=== PATIENT | male | born 1980 | race Caucasian/White ===

== ENCOUNTER 2016-09-20 12:42 | Emergency (ER) | payer OTHER ==
[~2016-09-20] VITALS: Ht 185.4 cm; Wt 167.3 kg
[~2016-09-20 12:42] MED LIST: ALBUTEROL SULF8.5 GM IH; BENADRYL25 MG PO; BUPROPION XL150 MG PO; FLAGYL500 MG PO; FLOVENT 22120 INHALA IH; HYDROCODONE-AP1 EA15 PO; LEVOTHYROXINE75 MCG PO; LYRICA150 MG PO; MEDROL DOSEPAK4 MG PO; METHADONE5 MG PO; METHOCARBAMOL500 MG PO; PERCOCET 5-3251 EACH PO; PERCOCET 5/31 TABLET PO; PREDNISONE10 M1 PO; PREDNISONE20 M1 PO; PREDNISONE20 MG PO; PRINZIDE 20-251 EACH PO; RANITIDINE HCL300 M1 PO; ROBITUSSIN100 MG/5 M PO; VALIUM5 MG PO; VIIBRYD40 MG PO; ZESTORETIC 20-1 EAC1 PO
[2016-09-20] MEDS ORDERED: GABAPENTIN300 MG PO (13:41)
[2016-09-20] MEDS ORDERED: TIZANIDINE HCL4 MG PO (13:42)
[2016-09-20] MEDS ORDERED: ZESTORETIC 20-1 EAC1 PO (13:42)
[2016-09-20 13:44] LABS: HEMATOCRIT 45.4 % (38.0-50.0); MCH 33.7 PG (29.0-34.0); MCHC 35.5 G/DL (30.0-36.0); MEAN PLAT.VOLUME 9.1 uM^3 (9.0-12.4); PLATELET COUNT 218 K/uL (156-360); RBC DIS.WIDTH-CV 11.7 % (11.8-14.6); RBC DIS.WIDTH-SD 41.1 % (39-53); RED BLOOD COUNT 4.78 M/uL (4.00-5.50); WHITE BLOOD COUNT 10.5 K/uL (4.1-10.2)
[2016-09-20 13:46] LABS: ADD MIUA? YES; BILIRUBIN NEGATIVE; BLOOD LARGE; COLOR YELLOW ((YELLOW)); GLUCOSE (STRIP) NEGATIVE; KETONES NEGATIVE; LEUKOCYTES TRACE; NITRITE NEGATIVE; PROTEIN (STRIP) 100; SPECIFIC GRAVITY 1.013 (1.000-1.030); UROBILINOGEN 0.2 MG/DL (0.2-1.0)
[2016-09-20 13:53] LABS: CHLORIDE 99 mEq/L (99-109); POTASSIUM 3.9 mEq/L (3.7-5.4); SODIUM 137 mEq/L (136-147)
[2016-09-20 13:55] LABS: GLUCOSE 92 mg/dL (70-99)
[2016-09-20 13:56] LABS: ANION GAP 12 MEQ/L (2-14)
[2016-09-20 13:57] LABS: TOTAL BILIRUBIN 0.4 mg/dL (0.0-1.0)
[2016-09-20 14:00] LABS: ALKALINE PHOSPHATASE 98 IU/L (3-129); GFR ESTIMATE (CALCULATED) 36 mL/min/; UREA NITROGEN (BUN) 20 mg/dL (9-23)
[2016-09-20 14:13] LABS: LIPASE 30 U/L (1.0-51.0)
[2016-09-20 14:22] LABS: RED BLOOD CELLS TNTC /HPF (0-5); WHITE BLOOD CELLS 20-30 /HPF (0-5)
[2016-09-20 14:23] LABS: BACTERIA RARE /HPF; EPITHELIAL CELLS 1+ /HPF; MUCUS 3+ /LPF; UCUL ADDED? NO
[2016-09-20 16:29] LABS: TROP-I INTERPRETATION NEGATIVE; TROPONIN-I 0.01 ng/mL (0.0-0.30)
[2016-09-20] MEDS ORDERED: MACROBID100 MG PO (18:04)
[2016-09-20 19:00] VITALS: BP 108/59
== END 2016-09-20 19:15 | disposition home or self-care (01) ==
LOC: RME 12:42 → EME 12:42 → RME 19:15
DX: R10.9 Unspecified abdominal pain (principal); R10.10 Upper abdominal pain, unspecified; N30.90 Cystitis, unspecified without hematuria; Z72.0 Tobacco use; Z88.8 Allergy status to other drugs, medicaments and biological substances; Z88.5 Allergy status to narcotic agent; Z88.6 Allergy status to analgesic agent; J45.909 Unspecified asthma, uncomplicated; I10 Essential (primary) hypertension
CPT/HCPCS: 71020; 74176; 76705; 80053; 81003; 83690; 84484; 85027; 93005; 99281; 99285; J3010; J7030

== ENCOUNTER 2016-10-21 10:21 | Day surgery (SDC) | payer OTHER ==
[~2016-10-21] VITALS: Ht 180.3 cm; Wt 167.8 kg
[~2016-10-21 10:21] MED LIST changes: +ELAVIL10 MG PO; +GABAPENTIN300 MG PO; +MACROBID100 MG PO; +PROTONIX40 MG PO; +TIZANIDINE HCL4 MG PO
== END 2016-10-21 12:23 | disposition home or self-care (01) ==
LOC: PAIN 10:21 → SDC 11:30 → PAIN 12:23
DX: M47.26 Other spondylosis with radiculopathy, lumbar region (principal); F41.9 Anxiety disorder, unspecified; Z79.891 Long term (current) use of opiate analgesic; M51.36 Other intervertebral disc degeneration, lumbar region; M51.26 Other intervertebral disc displacement, lumbar region; Z98.1 Arthrodesis status; M62.838 Other muscle spasm; F17.200 Nicotine dependence, unspecified, uncomplicated; I10 Essential (primary) hypertension; F81.9 Developmental disorder of scholastic skills, unspecified; E66.01 Morbid (severe) obesity due to excess calories; Z68.42 Body mass index [BMI] 45.0-49.9, adult; K21.9 Gastro-esophageal reflux disease without esophagitis; E03.9 Hypothyroidism, unspecified; R73.01 Impaired fasting glucose; Z88.6 Allergy status to analgesic agent; Z88.5 Allergy status to narcotic agent; Z88.8 Allergy status to other drugs, medicaments and biological substances
CPT/HCPCS: J1030; J2250; J3010; S0020

== ENCOUNTER 2016-10-28 06:25 | Day surgery (SDC) | payer OTHER ==
[~2016-10-28] VITALS: Ht 180.3 cm; Wt 167.8 kg
== END 2016-10-28 09:00 | disposition home or self-care (01) ==
LOC: PAIN 06:25 → SDC 08:15 → PAIN 09:00
DX: M51.16 Intervertebral disc disorders with radiculopathy, lumbar region (principal); I10 Essential (primary) hypertension; J45.909 Unspecified asthma, uncomplicated; E03.9 Hypothyroidism, unspecified; K21.9 Gastro-esophageal reflux disease without esophagitis; M62.830 Muscle spasm of back; M48.06 Spinal stenosis, lumbar region; F41.8 Other specified anxiety disorders; G62.9 Polyneuropathy, unspecified; E66.01 Morbid (severe) obesity due to excess calories; Z68.42 Body mass index [BMI] 45.0-49.9, adult; Z87.891 Personal history of nicotine dependence; Z79.891 Long term (current) use of opiate analgesic; Z79.899 Other long term (current) drug therapy
CPT/HCPCS: J1030; J2250; J3010; S0020